=== PATIENT | male | born 1955 ===

== ENCOUNTER 2017-09-01 08:07 | Day surgery (SDC) | payer BC ==
[2017-08-30 13:14] LABS: Eosinophils # (auto) 0.2 uL; Lymphocytes # (auto) 1.6 uL; Mean Corpuscular Hgb Conc. 34.1 g/dL (32.0-36.0); Mean Corpuscular Volume 90.9 fL (80.0-100.0); Red Blood Cells 5.72 10^6/uL (4.5-5.90)
[2017-08-30 13:17] LABS: Basophils # (auto) 0 uL; Basophils % (auto) 0.6 % (0.0-2.0); Eosinophils % (auto) 2.5 % (0.0-7.0); Hematocrit 52.1 % (41.0-53.0); Hemoglobin 17.8 g/dL (13.5-17.5); Lymphocytes % (auto) 19.6 % (10.0-50.0); Monocytes # (auto) 0.8 uL; Monocytes % (auto) 9.7 % (0.0-12.0); Neutrophils # (auto) 5.6 uL; Neutrophils % (auto) 67.6 % (37.0-80.0); Nucleated Red Blood Cells % 2.1 %; Platelet Count (auto) 246 10^3/uL (140-450); Red Cell Distribution Width 13.1 % (11.8-14.3); White Blood Cell 8.2 10^3/uL (4.4-10.8)
[2017-08-30 13:26] LABS: Urine Bacteria NONE SEEN /hpf (None Seen); Urine Blood 2+ /uL (Negative); Urine Mucus FEW (None Seen); Urine Specific Gravity 1.027 (1.001-1.035); Urine WBC 268 /hpf (0 - 3)
[2017-08-30 13:27] LABS: BUN/Creatinine Ratio 18.7; Calcium 10.2 mg/dL (8.5-10.1); Potassium 4.7 mmol/L (3.5-5.1)
[2017-08-30 13:31] LABS: INR 0.98 (0.9-1.15); Partial Thromboplastin Time 28.5 sec (22.64-33.71); Prothrombin Time 10.7 sec (9.37-12.3)
[~2017-09-01] VITALS: Ht 175.3 cm; Wt 89.8 kg
[~2017-09-01 08:07] MED LIST: ATEN50TA PO; CHOL20007 PO; FENO1TAB42 PO; FOLI1TAB6 PO; LOSA100T27 PO; METH2.5T3 PO; PRAV20TA3 PO
[2017-09-01] MEDS ORDERED: ceFAZolin 1GM/50ML 100 ML IV ONE (08:11)
[2017-09-01] MEDS ORDERED: fentaNYL CITRATE 100 MCG/2 ML VL ONE (10:50)
[2017-09-01] MEDS ORDERED: PROPOFOL 10 MG/ML 20 ML IV ONE (10:50)
[2017-09-01] MEDS ORDERED: ONDANSETRON HCL 4 MG/2 ML VIAL IV ONE (12:15)
[2017-09-01] MEDS ORDERED: hydrALAZINE HCL 20 MG/ML VL IV PRN (12:15)
[2017-09-01] MEDS ORDERED: ePHEDrine SULFATE 50 MG/ML AMP IV PRN (12:15)
[2017-09-01] MEDS ORDERED: MORPHINE SULFATE INJECTION 1 ML ONE (12:24)
[2017-09-01] MEDS ORDERED: ONDANSETRON HCL 4 MG/2 ML VIAL ONE (12:24)
[2017-09-01] MEDS: MORPHINE SULFATE 4 MG/ML SYR/VIAL IV PRN ×3 (12:25→12:55)
[2017-09-01 13:10] VITALS: BP 134/94
== END 2017-09-01 13:20 | disposition home or self-care (01) ==
LOC: SUR 08:07
PROVIDERS: ATTEND Urology
DX: N21.0 Calculus in bladder (principal); M06.9 Rheumatoid arthritis, unspecified; I10 Essential (primary) hypertension; G47.30 Sleep apnea, unspecified; F10.99 Alcohol use, unspecified with unspecified alcohol-induced disorder; Z88.5 Allergy status to narcotic agent; Z90.49 Acquired absence of other specified parts of digestive tract; Z79.899 Other long term (current) drug therapy; Z79.2 Long term (current) use of antibiotics; Z79.01 Long term (current) use of anticoagulants; Z79.891 Long term (current) use of opiate analgesic
CPT/HCPCS: 36415; 52318; 80048; 81001; 85025; 85610; 85730; 87086; J0690; J2270; J2405; J2704; J3010